=== PATIENT | male | born 1955 | race Caucasian/White ===

== ENCOUNTER 2016-07-04 18:11 | Emergency (ER) | payer OTHER ==
[2016-07-04] MEDS ORDERED: methylPREDNISolone Sodium Succinate 125 MG/2 ML SDV IVPUSH ONE (18:17)
[2016-07-04] MEDS ORDERED: Sodium Chloride 0.9% 1,000 ML IV ONE (18:17)
[2016-07-04] MEDS ORDERED: Famotidine 20 MG/2 ML SDV IVPUSH ONE (18:17)
[2016-07-04] MEDS ORDERED: diphenhydrAMINE 50 MG/ML SDV IVPUSH ONE (18:17)
[2016-07-04] MEDS ORDERED: Sodium Chloride 0.9% 10 ML Syringe FLUSH PRN (18:17)
[2016-07-04] MEDS ORDERED: Sodium Chloride 0.9% 2.5 ML Syringe FLUSH PRN (18:17)
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
[2016-07-04] MEDS ORDERED: Albuterol/Ipratropium 3.0-0.5 MG/3 ML Neb Soln NEB ONE (18:32)
[2016-07-04 19:56] VITALS: BP 149/88
== END 2016-07-04 20:05 | disposition home or self-care (01) ==
LOC: MW.ED 18:11
DX: T63.441A Toxic effect of venom of bees, accidental (unintentional), initial encounter (principal); F17.200 Nicotine dependence, unspecified, uncomplicated
CPT/HCPCS: 93005; 94664; 96361; 96374; 96375; 99283; J1200; J2930; J7040; 99284

== ENCOUNTER 2016-07-05 16:26 | Emergency (ER) | payer OTHER ==
[2016-07-05] MEDS ORDERED: methylPREDNISolone Sodium Succinate 40 MG/1 ML SDV IM ONE (16:41)
[2016-07-05] MEDS ORDERED: hydrOXYzine Pamoate 25 MG Cap PO ONE (16:41)
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
[2016-07-05 16:59] VITALS: BP 138/70
== END 2016-07-05 16:58 | disposition home or self-care (01) ==
LOC: MW.ED 16:26
DX: T63.441D Toxic effect of venom of bees, accidental (unintentional), subsequent encounter (principal); H93.8X2 Other specified disorders of left ear; I10 Essential (primary) hypertension; F17.210 Nicotine dependence, cigarettes, uncomplicated; Z91.030 Bee allergy status
CPT/HCPCS: 96372; 99282; A9270; J2920; 99283

== ENCOUNTER → 2016-07-18 | Outpatient (CLI) | payer OTHER ==
--- NOTE | 2016-07-18 13:37 | US ---
EXAMINATION: Limited abdominal ultrasound HISTORY: Hernia COMPARISON: None TECHNIQUE: Grayscale and color Doppler images obtained within the region of concern. FINDINGS: There is a small fat-containing supraumbilical hernia noted measuring approximately 2 x 4 cm. The defect within the abdominal wall measures approximately 1.7 cm. No abnormal color Doppler f low. IMPRESSION: Small supraumbilical fat-containing ventral hernia.
== END ==
LOC: MW.US 09:54
DX: K46.9 Unspecified abdominal hernia without obstruction or gangrene (principal)
CPT/HCPCS: 76705; 76705-26

== ENCOUNTER 2017-04-05 23:05 | Observation (INO) | payer OTHER ==
[2017-04-05] MEDS ORDERED: Sodium Chloride 0.9% 1,000 ML IV ONE (23:17)
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
[2017-04-05 23:54] LABS: CHLORIDE,CL 105 mmol/L (98-110); SODIUM,NA 139 mmol/L (136-146)
[2017-04-06] MEDS ORDERED: Sodium Chloride 0.9% 1,000 ML IV SCH ×2 (01:00→03:00)
[2017-04-06] MEDS ORDERED: LORazepam 2 MG/ML SDV IVPUSH PRN (02:46)
[2017-04-06] MEDS: Folic Acid 1 MG Tab PO SCH ×2 (03:18→09:05)
[2017-04-06] MEDS: Thiamine 100 MG Tab PO SCH ×2 (03:18→09:05)
[2017-04-06 05:39] LABS: CHLORIDE,CL 112 mmol/L (98-110); SODIUM,NA 142 mmol/L (136-146)
[2017-04-06 11:47] VITALS: BP 127/69
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
--- NOTE | 2017-04-07 15:35 | CT ---
EXAM DATE: 04/06/17 PATIENT'S AGE: 61 Patient: MARTINE MACARIO Facility: [place], [place] Site . Site : 1955 Study: CT Head [id number]/3/2018 11:49:25 PM Ordering Physician: Jay Pedro Final Report: INDICATION: Headache TECHNIQUE: Noncontrast CT of the brain was performed with images acquired from skull base to vertex. COMPARISON: None available. FINDINGS: Anterior inferior left frontal lobe encephalomalacia likely related to prior trauma. There is no acute intracranial hemorrhage. Ventricles are of normal size and morphology. No mass effect or midline shift is present. The taveras-white matter differentiation is normal. The visualized portions of the orbits are normal. The visualized portions of the mastoids are normal. The visualized portions of the paranasal sinuses are normal. There are bilateral nasal bone fractures and fracture of the left lamina papyracea. There postoperative changes left maxillary surgical repair. The visualized right maxillary sinus is completely opacified. IMPRESSION: 1. No acute intracranial abnormality. 2. Fractures of both nasal bones and the left lamina papyracea. Facial bones are incompletely evaluated. If there is a history of facial trauma, facial bone CT is recommended for further evaluation. Please note that all CT scans at this facility use dose modulation, iterative reconstruction, and/or weight-based dosing when appropriate to reduce radiation dose to as low as reasonably achievable. Dictated by Jared Santana MD @ Apr 05 2017 11:59PM ----- ADDENDUM ----- Addendum: Dr. Santana discussed these findings with Dr. Thompson at 12:15 a.m. on 04/06/2017 Dictated by Jared Santana MD @ Apr 06 2017 12:15AM (Electronic Signature) Report Signed by Proxy. [facility] HOSPITALCynthia
--- NOTE | 2017-04-07 15:35 | CR ---
EXAM DATE: 04/06/17 PATIENT'S AGE: 61 Patient: MARTINE MACARIO Facility: [place], [place] Site . Site : 1955 Study: XRay Chest [id number]/3/[id number] 11:51:43 PM Ordering Physician: Jay Pedro Final Report: INDICATION: Pain, ETOH CHEST, PA AND LATERAL Upright PA and lateral radiographs of the chest were performed. Comparison: 11/25/2012. The lungs appear clear and there are no pleural effusions. Heart size and pulmonary vasculature appear normal. Visualized bones show no significant findings. IMPRESSION: No acute intrathoracic abnormality identified. ABBEY WEEKS MD [employer] Dictated by: Ayan Weeks MD @ 04/06/2017 00:31:26 (Electronic Signature) Report Signed by Proxy. [facility]
== END 2017-04-06 15:50 | disposition home or self-care (01) ==
LOC: MW.ED 23:05 → MW.MS 04-06 00:57
PROVIDERS: ADMIT Internal Medicine; ATTEND Internal Medicine
DX: F10.129 Alcohol abuse with intoxication, unspecified (principal); I10 Essential (primary) hypertension; F17.210 Nicotine dependence, cigarettes, uncomplicated; Z91.09 Other allergy status, other than to drugs and biological substances
CPT/HCPCS: 36415; 70450; 71045; 80048; 80053; 80305; 81001; 82550; 82553; 84484; 85025; 93005; 96360; 96361; 99285; A9270; G0480; J7040; 99283; G0378

== ENCOUNTER 2017-05-25 00:49 | Emergency (ER) | payer OTHER ==
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
[2017-05-25] MEDS ORDERED: MVI, Adult with Vitamin K 10 ML, Thiamine 100 MG, Folic Acid 1 MG in Sodium Chloride 0.... IV ONE ×4 (01:20)
[2017-05-25 01:44] LABS: CHLORIDE,CL 108 mmol/L (98-107); SODIUM,NA 142 mmol/L (136-148)
[2017-05-25] MEDS ORDERED: Ketorolac 30 MG/ML SDV IVPUSH ONE (02:06)
[2017-05-25 03:28] VITALS: BP 157/78
--- NOTE | 2017-05-26 15:33 | CR ---
EXAM DATE: 05/25/17 PATIENT'S AGE: 61 Patient: MARTINE MACARIO Facility: [place], [place] Site . Site : [id number] Study: XRay Pelvis [id number]/25/2018 1:39:44 AM Ordering Physician: Jay Pedro Final Report: INDICATION: Left-sided pelvic pain, no history trauma TECHNIQUE: AP pelvis COMPARISON: None FINDINGS: Bones: Alignment is normal. No fractures or bone lesions. Joint spaces: Small bilateral acetabular spurs left greater right. Soft tissues: Unremarkable. IMPRESSION: Bilateral acetabular spurs left greater than right otherwise unremarkable pelvis. Dictated by Golden Culp MD @ 05/25/2017 2:00:47 AM Dictated by: Golden Culp MD @ 05/25/2017 02:00:52 (Electronic Signature) Report Signed by Proxy. [facility]LEY HOSPITALCynthia
== END 2017-05-25 03:29 | disposition home or self-care (01) ==
LOC: MW.ED 00:49
DX: M76.892 Other specified enthesopathies of left lower limb, excluding foot (principal); I10 Essential (primary) hypertension; F17.210 Nicotine dependence, cigarettes, uncomplicated; Z91.030 Bee allergy status
CPT/HCPCS: 72170; 80053; 81001; 83735; 85025; 96365; 96375; 99284; J1885; J3411; J7040; 99283

== ENCOUNTER → 2017-08-07 | Day surgery (SDC) | payer OTHER ==
[~2017-08-07] MED LIST: Betamethasone Acetate/Betamethasone Sod Phosphate 30 MG/5 ML MDV ONE; Iopamidol 408 MG/ML 50 ML SDV ONE; Lidocaine 2% 5 ML SDV ONE; Ropivacaine 0.5% 5 MG/ML 30 ML SDV ONE
--- NOTE | 2017-08-07 17:10 | OR ---
SURGEON: Melina Alejo D.O. DATE OF PROCEDURE: 08/07/2017 OR STAFF PRESENT: 1. Kyle Villalta RN. 2. Kareem Smith RN. WOUND CLASSIFICATION: I. PREOPERATIVE DIAGNOSES: 1. Left hip pain. 2. Left hip arthritis. POSTOPERATIVE DIAGNOSES: 1. Left hip pain. 2. Left hip arthritis. PROCEDURES PERFORMED: 1. Left intra-articular hip injection. 2. Fluoroscopic guidance for needle placement. 3. Local with oral Valium for sedation. SCREENING QUESTIONS: The patient answered "No" to all the following questions: 1. Are you allergic to iodine, Betadine, or latex? 2. Do you have a bleeding disorder? 3. Do you have any joint replacements, heart valve replacements or a pacemaker? 4. Are you allergic to anti-inflammatories? 5. Are you on any blood thinners? 6. Do you have any current local or systemic infections? DESCRIPTION OF PROCEDURE: The patient had the procedure thoroughly explained including all possible risks, benefits and alternatives. Consent was signed in my clinic indicating understanding and willingness to proceed. The patient presented to [facility] and was escorted to the dressing room to disrobe and change into a hospital gown. Preoperative vital signs were taken and stable. The patient reported that Valium was taken prior to the procedure. The patient was brought to the procedure room and placed in the supine position on the procedure room table. The hip landmarks were identified for the intra- articular injection and the femoral pulse was palpated and marked. The skin was marked shelter between the femoral pulse and greater trochanter for a skin wheal. The skin was sterilely prepped with ChloraPrep and draped. All personnel in the operating room were dressed in appropriate attire including surgical scrubs, head and shoe covers. This was to ensure sterility while in the treatment room. During the time fluoroscopy was in use, all personnel in the operating room wore lead tobar with thyroid collars. Sterile technique was used during the procedure. The fluoroscope was placed for the intra-articular hip injection. There were no signs of infection at the site for needle insertion. The skin was anesthetized with 2% Lidocaine with a 27-gauge 1.5 inch needle. Then, using a 22-gauge 3.5 inch spinal needle, I advanced to the capsule of the hip joint, a pop was felt. Under direct fluoroscopic guidance verifying needle positioning, 0.2 cubic centimeters increments of Isovue-200 dye was injected and shown to outline the intra-articular space. No intravascular flow pattern was observed under live fluoroscopy. After negative aspiration, a mixture of 0.5% Ropivacaine, 2% Lidocaine, and 12 milligrams of Celestone was slowly injected in small increments after negative aspiration of heme. No paresthesias were noted. The needle was cleared prior to removal from the skin and no adverse reactions were noted. The patient was then brought to the recovery room awake and in good condition by my staff. After a brief stay in the recovery room, the patient was discharged to home. Both oral and written discharge and followup instructions were given to the patient. The patient will follow up in the clinic in two to three weeks postprocedure to evaluate the efficacy. The patient verbalized understanding including understanding those signs and symptoms that would require emergency care and knows how to contact the office if there are any problems or questions in the meantime. PREOPERATIVE PAIN: 8/10. POSTOPERATIVE PAIN: 0/10. PLAN: Follow up in the Pain Clinic in 3 weeks. TOI / LAYLA /[id number]
== END ==
LOC: MW.SDS 13:46
PROVIDERS: ATTEND Anesthesiology
DX: M16.12 Unilateral primary osteoarthritis, left hip (principal); K21.9 Gastro-esophageal reflux disease without esophagitis; G44.329 Chronic post-traumatic headache, not intractable; B19.20 Unspecified viral hepatitis C without hepatic coma; F17.210 Nicotine dependence, cigarettes, uncomplicated; M54.16 Radiculopathy, lumbar region
CPT/HCPCS: 20610; J0702; J2795; Q9966

== ENCOUNTER 2017-08-28 12:08 | Day surgery (SDC) | payer OTHER ==
[~2017-08-28 12:08] MED LIST changes: -Betamethasone Acetate/Betamethasone Sod Phosphate 30 MG/5 ML MDV ONE; +Diazepam 5 MG Tab PO ONE; -Iopamidol 408 MG/ML 50 ML SDV ONE; -Lidocaine 2% 5 ML SDV ONE; -Ropivacaine 0.5% 5 MG/ML 30 ML SDV ONE
[2017-08-28] MEDS ORDERED: Lidocaine 2% 5 ML SDV ONE ×2 (14:02→14:03)
[2017-08-28] MEDS ORDERED: Iopamidol 408 MG/ML 50 ML SDV ONE (14:03)
[2017-08-28] MEDS ORDERED: Betamethasone Acetate/Betamethasone Sod Phosphate 30 MG/5 ML MDV ONE (14:03)
[2017-08-28] MEDS ORDERED: Ropivacaine 0.5% 5 MG/ML 30 ML SDV ONE (14:03)
--- NOTE | 2017-08-28 15:08 | OR ---
SURGEON: Melina Alejo D.O. DATE OF PROCEDURE: 08/28/2017 OR STAFF PRESENT: 1. Kyle Villalta RN. 2. Asif Wilkinson RT. PREOPERATIVE DIAGNOSES: 1. Lumbar degenerative disk disease. 2. Lumbar spondylosis. 3. Lumbar spinal stenosis. 4. Lumbar radiculopathy. POSTOPERATIVE DIAGNOSES: 1. Lumbar degenerative disk disease. 2. Lumbar spondylosis. 3. Lumbar spinal stenosis. 4. Lumbar radiculopathy. PROCEDURES PERFORMED: 1. Caudal epidural steroid injection. 2. Fluoroscopic guidance for needle placement. 3. Local with oral valium for sedation. SCREENING QUESTIONS: The patient answered "no" to all of the following questions: 1. Are you allergic to latex? 2. Do you have a bleeding disorder? 3. Do you have any current local or systemic infections? 4. Are you taking any anti-inflammatories or blood thinners? 5. Do you have any joint replacements, heart valve replacements, or a pacemaker? DESCRIPTION OF PROCEDURE: The patient had the procedure thoroughly explained including all possible risks, benefits and alternatives. Consent was signed in my clinic indicating understanding and willingness to proceed. The patient presented to [facility] and was escorted to the dressing room to disrobe and change into a hospital gown. Preoperative vital signs were taken and stable. The patient reported that Valium was taken prior to the procedure. The patient was brought back to the procedure room and placed in the prone position on the procedure room table. A pillow was placed under the hips in order to flatten the lumbar lordosis. The back was prepped with ChloraPrep and sterilely draped. All personnel in the operating room were dressed in appropriate attire including surgical scrubs, head and shoe covers. This was to ensure sterility while in the treatment room. During the time fluoroscopy was in use, all personnel in the operating room wore lead tobar with thyroid collars. Sterile technique was used throughout the procedure. The patient was awake and conversant throughout the procedure. There was no evidence of infection at the site of needle insertion. Skeletal landmarks were identified under fluoroscopy for the lumbar epidural. Skin was anesthetized with 2% lidocaine with a sterile 27-gauge 1.5 inch needle. Then, a 20-gauge Tuohy epidural needle was placed in the epidural space with loss of resistance technique under fluoroscopic guidance. No heme, cerebrospinal fluid, or paresthesias were noted. Isovue-200 contrast dye was injected in 0.2 cubic centimeter increments and seen to outline the epidural space in both AP and lateral views. There was no intravascular flow pattern observed under live fluoroscopy. Then, 12 milligrams of Celestone was slowly injected after negative aspiration. The patient tolerated the procedure well. Vital signs were stable during and after the procedure. The staff escorted the patient to the recovery area and the patient was released in stable condition after a brief stay in the recovery room monitored by the nurse. The patient was given both oral and written discharge and follow up instructions with recommendation to follow up given for 2-3 weeks. The patient voiced understanding including understanding of those signs and symptoms that would require emergency care. The patient knows how to contact the office if there are any additional problems or questions in the meantime. PREOPERATIVE PAIN: 8/10 POSTOPERATIVE PAIN: 06/10 FOLLOWUP: Follow up in the Pain Clinic in 3 weeks TOI / LAYLA /[id number]
== END 2017-08-28 14:18 ==
LOC: MW.SDS 12:08
PROVIDERS: ATTEND Anesthesiology
DX: M51.16 Intervertebral disc disorders with radiculopathy, lumbar region (principal); M47.26 Other spondylosis with radiculopathy, lumbar region; M48.061 Spinal stenosis, lumbar region without neurogenic claudication; M19.90 Unspecified osteoarthritis, unspecified site; M16.12 Unilateral primary osteoarthritis, left hip; K21.9 Gastro-esophageal reflux disease without esophagitis; B19.20 Unspecified viral hepatitis C without hepatic coma; F17.210 Nicotine dependence, cigarettes, uncomplicated; Z79.899 Other long term (current) drug therapy
CPT/HCPCS: A9270-GY; J0702; J2795; Q9966

== ENCOUNTER 2017-08-31 10:06 | Emergency (ER) | payer OTHER ==
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
[2017-08-31] MEDS ORDERED: Sodium Chloride 0.9% 2.5 ML Syringe FLUSH PRN (10:30)
[2017-08-31] MEDS ORDERED: Sodium Chloride 0.9% 10 ML Syringe FLUSH PRN (10:30)
[2017-08-31] MEDS ORDERED: Morphine 2 MG/ML Syringe IVPUSH ONE (11:00)
[2017-08-31] MEDS ORDERED: Ondansetron 4 MG/2 ML SDV IVPUSH ONE (11:00)
[2017-08-31 11:08] LABS: CHLORIDE,CL 104 mmol/L (98-107); SODIUM,NA 140 mmol/L (136-148)
[2017-08-31] MEDS ORDERED: Iopamidol 755 MG/ML 200 ML Multipack Bottle IVPUSH ONE (11:46)
[2017-08-31 12:55] VITALS: BP 161/84
--- NOTE | 2017-09-01 18:35 | CT ---
EXAM DATE: 08/31/17 PATIENT'S AGE: 62 Patient: MARTINE MACARIO Facility: [place], [place] Site . Site : [id number] Study: CT Abdomen/Pelvis w cont [id number]/1/2018 11:50:08 AM Ordering Physician: Doctor Tellez Final Report: HISTORY: Right lower abdominal pain radiating to left side for 2 days. Technique: Contrast enhanced CT abdomen pelvis with 100 mL Isovue-370 coronal sagittal reformatted images obtained. COMPARISON: No comparison studies are available. FINDINGS: Heart size is normal. Mild bibasilar strandy atelectasis. There is no effusion. Mild fatty liver. Pancreas gallbladder adrenal glands, spleen appears unremarkable. Kidneys appear unremarkable. Tiny cyst in the kidneys. No hydronephrosis. Urinary bladder appears unremarkable. Normal appendix. Bowel is unremarkable. Mild enlargement of the prostate gland. No inflammatory change in the abdomen or pelvis. No suspicious bony lesions. IMPRESSION: 1. No acute findings in the abdomen or pelvis. 2. Mild enlargement of prostate gland. Mild fatty liver. Please note that all CT scans at this facility use dose modulation, iterative reconstruction, and/or weight-based dosing when appropriate to reduce radiation dose to as low as reasonably achievable. Dictated by Giovana Archuleta MD @ Aug 31 2017 12:14PM (Electronic Signature) Report Signed by Proxy. KRISTEN
== END 2017-08-31 12:40 | disposition home or self-care (01) ==
LOC: MW.ED 10:06
DX: R14.1 Gas pain (principal); I10 Essential (primary) hypertension; Z79.899 Other long term (current) drug therapy
CPT/HCPCS: 36415; 74177; 80053; 81001; 85025; 96374; 96375; 99284; J2270; J2405; Q9967; 99282

== ENCOUNTER 2017-09-16 11:55 | Day surgery (SDC) | payer OTHER ==
[~2017-09-16 11:55] MED LIST changes: +Betamethasone Acetate/Betamethasone Sod Phosphate 30 MG/5 ML MDV ONE; -Diazepam 5 MG Tab PO ONE; +Iopamidol 408 MG/ML 50 ML SDV ONE; +Lidocaine 2% 5 ML SDV ONE; +Ropivacaine 0.5% 5 MG/ML 30 ML SDV ONE
--- NOTE | 2017-09-16 16:43 | OR ---
SURGEON: Melina Alejo D.O. DATE OF PROCEDURE: 09/16/2017 OR STAFF PRESENT: 1. Venita Smith RN. 2. Venita Valdes RN. 3. Samra Hall, RT. WOUND CLASS: I. PREOPERATIVE DIAGNOSES: 1. Lumbar degenerative disk disease. 2. Lumbar spinal stenosis. 3. Lumbar radiculopathy. POSTOPERATIVE DIAGNOSES: 1. Lumbar degenerative disk disease at L3-4, L4-5, and L5-S1. 2. Lumbar radiculopathy. 3. Lumbar spinal stenosis. 4. Lumbar spondylosis. PROCEDURES PERFORMED: 1. Lumbar interlaminar epidural steroid injection at L3-4. 2. Fluoroscopic guidance for needle placement. 3. Local with oral valium for sedation. SCREENING QUESTIONS: The patient answered "no" to all of the following questions: 1. Are you allergic to latex? 2. Do you have a bleeding disorder? 3. Do you have any current local or systemic infections? 4. Are you taking any anti-inflammatories or blood thinners? 5. Do you have any joint replacements, heart valve replacements, or a pacemaker? DESCRIPTION OF PROCEDURE: The patient had the procedure thoroughly explained including all possible risks, benefits and alternatives. Consent was signed in my clinic indicating understanding and willingness to proceed. The patient presented to [facility] and was escorted to the dressing room to disrobe and change into a hospital gown. Preoperative vital signs were taken and stable. The patient reported that Valium was taken prior to the procedure. The patient was brought back to the procedure room and placed in the prone position on the procedure room table. A pillow was placed under the hips in order to flatten the lumbar lordosis. The back was prepped with ChloraPrep and sterilely draped. All personnel in the operating room were dressed in appropriate attire including surgical scrubs, head and shoe covers. This was to ensure sterility while in the treatment room. During the time fluoroscopy was in use, all personnel in the operating room wore lead tobar with thyroid collars. Sterile technique was used throughout the procedure. The patient was awake and conversant throughout the procedure. There was no evidence of infection at the site of needle insertion. Skeletal landmarks were identified under fluoroscopy for the lumbar epidural. Skin was anesthetized with 2% lidocaine with a sterile 27-gauge 1.5 inch needle. Then a 20-gauge Tuohy epidural needle was placed in the epidural space with loss of resistance technique under fluoroscopic guidance. No heme, cerebrospinal fluid, or paresthesias were noted. Isovue-200 contrast dye was injected in 0.2 cubic centimeter increments and seen to outline the epidural space in both AP and lateral views. There was no intravascular flow pattern observed under live fluoroscopy. Then 12 milligrams of Celestone was slowly injected after negative aspiration. The patient tolerated the procedure well. Vital signs were stable during and after the procedure. The staff escorted the patient to the recovery area and the patient was released in stable condition after a brief stay in the recovery room monitored by the nurse. The patient was given both oral and written discharge and follow up instructions with recommendation to follow up given for 2-3 weeks. The patient voiced understanding including understanding of those signs and symptoms that would require emergency care. The patient knows how to contact the office if there are any additional problems or questions in the meantime. PREOPERATIVE PAIN: 8/10. POSTOPERATIVE PAIN: 4/10. FOLLOWUP: In the pain clinic in 3 weeks. TOI / LAYLA /[id number]
== END 2017-09-16 14:14 | disposition home or self-care (01) ==
LOC: MW.SDS 11:55
PROVIDERS: ATTEND Anesthesiology
DX: M51.16 Intervertebral disc disorders with radiculopathy, lumbar region (principal); M48.061 Spinal stenosis, lumbar region without neurogenic claudication; M47.896 Other spondylosis, lumbar region; G89.4 Chronic pain syndrome; M79.1 Myalgia; K21.9 Gastro-esophageal reflux disease without esophagitis
CPT/HCPCS: 62323; J0702; J2795; Q9966

== ENCOUNTER 2017-09-21 20:05 | Emergency (ER) | payer OTHER ==
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
[2017-09-21] MEDS ORDERED: Albuterol/Ipratropium 3.0-0.5 MG/3 ML Neb Soln NEB ONE (20:37)
[2017-09-21] MEDS ORDERED: cefTRIAXone 250 MG Vial IM ONE (20:37)
[2017-09-21 20:42] VITALS: BP 146/72
[2017-09-21 21:13] LABS: CHLORIDE,CL 104 mmol/L (98-107); SODIUM,NA 138 mmol/L (136-148)
--- NOTE | 2017-09-22 14:47 | CR ---
EXAM DATE: 09/21/17 PATIENT'S AGE: 62 Patient: MARTINE MACARIO Facility: [place], [place] Site . Site : 1955 Study: XRay Chest [id number]/22/2018 9:13:22 PM Ordering Physician: Jacobo Craven Final Report: INDICATIONS: Productive cough with fever. TECHNIQUE: Chest 2 view. COMPARISON: None FINDINGS: No pneumothorax, pleural effusion or airspace consolidation. Cardiac and mediastinal contours are within normal limits. Upper abdomen and osseous structures show no acute abnormality. IMPRESSION: No evidence of acute cardiopulmonary disease. Dictated by Theo Monroe MD @ 09/21/2017 9:43:30 PM Dictated by: Theo Monroe MD @ 09/21/2017 21:43:44 (Electronic Signature) Report Signed by Proxy. [facility]AMPUSCynthia
== END 2017-09-21 22:25 | disposition home or self-care (01) ==
LOC: MW.ED 20:05
DX: J18.9 Pneumonia, unspecified organism (principal); Z91.030 Bee allergy status
CPT/HCPCS: 36415; 71046; 80048; 85025; 94640; 96372; 99283; J0696

== ENCOUNTER 2017-12-02 08:16 | Emergency (ER) | payer OTHER ==
[2017-12-02 08:34] VITALS: BP 173/91
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
--- NOTE | 2017-12-02 09:56 | CT ---
EXAMINATION: Non contrast CT head and facial bones. Coronal and sagittal reformats. HISTORY: Pain FINDINGS: Head: No evidence of intra or extra axial hemorrhage, mass, midline shift, hydrocephalus or edema. S mall area of encephalomalacia within the left frontal region. No hypoattenuation changes in the melissa r vascular territories to suggest acute infarct. No abnormal intracranial calcifications are detected. No evidence of substantial vascular calcificat ions. The opacification of the right maxillary sinus and a single right ethmoid air cell. Mastoid ai r cells are clear. Pituitary fossa appears unremarkable. Calvarium is intact. No evidence of skull fracture. Facial bones: Old healed maxillary wall fractures noted without definite evidence of an acute injury. Zygomatic arches are intact. Pterygoid plates are intact. Moderate rightward deviation of the nasal septum. Multiple nasal bone fractures are noted, likely chronic. No acute-appearing orbital wall frac ture. Pterygoid plate fractures are noted bilaterally thinning into the maxillary regions, however im ages appear corticated and likely chronic. The mandible is intact. Visualized cervical spine is intac t. Orbits and globes appear symmetric. IMPRESSION: 1. No acute intracranial findings. 2. Old [place] and nasal bone fractures. 3. No definite evidence of an acute facial bone injury. 4. Heterogeneous, complete opacification of the right maxillary sinus. This likely represents chronic sinusitis with a fungal etiology versus inspissated secretions. 5. 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 6. Mild small vessel ischemic changes.
--- NOTE | 2017-12-02 10:00 | CT ---
EXAMINATION: CT cervical spine HISTORY: Pain COMPARISON: None TECHNIQUE: Axial CT images obtained through the cervical spine without contrast. Coronal and sagittal reconstructions obtained. FINDINGS: There is reversal of the normal cervical lordosis. The vertebral body heights appear mainta ined. There is no fracture or acute osseous abnormality. Mild to moderate marginal osteophytes noted. Likely small osteophyte disc complexes noted throughout the cervical spine. Please see CT head for i ntracranial findings. Mild carotid artery calcifications. Hazy groundglass opacities noted within the lung apices. IMPRESSION: 1. No acute cervical spinal injury. 2. Moderate degenerative changes noted throughout the cervical spine. 3. Hazy groundglass opacities within the lung apices, right greater than left. Etiology is uncertain however short-term follow-up with a dedicated lung CT may be beneficial.
== END 2017-12-02 10:13 | disposition home or self-care (01) ==
LOC: MW.ED 08:16
DX: S09.90XA Unspecified injury of head, initial encounter (principal); S00.83XA Contusion of other part of head, initial encounter; I10 Essential (primary) hypertension; Z91.030 Bee allergy status; Y04.0XXA Assault by unarmed brawl or fight, initial encounter
CPT/HCPCS: 70450; 70450-26; 70486; 70486-26; 72125; 72125-26; 99284; 99284-25

== ENCOUNTER 2018-08-03 10:48 | Emergency (ER) | payer OTHER ==
[2018-08-03] MEDS ORDERED: Sodium Chloride 0.9% 10 ML Syringe FLUSH PRN (10:54)
[2018-08-03] MEDS ORDERED: Sodium Chloride 0.9% 2.5 ML Syringe FLUSH PRN (10:54)
[2018-08-03] MEDS ORDERED: Sodium Chloride 0.9% 10 ML SDV IV PRN (10:54)
[2018-08-03] MEDS ORDERED: Aspirin 81 MG Tab.Chew PO ONE (10:59)
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
[2018-08-03 11:35] VITALS: BP 189/91
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
[2018-08-03 12:07] LABS: CHLORIDE,CL 109 mmol/L (98-107); SODIUM,NA 143 mmol/L (136-148)
--- NOTE | 2018-08-03 12:08 | CR ---
INDICATION: Stroke code. COMPARISON: March, Single AP view Findings: The lungs are clear. Pulmonary vascularity, mediastinum and cardiac silhouette are within normal limits. No effusions and no pneumothorax. Osseous structures appear unremarkable. Impression: No evidence of acute cardiopulmonary disease. Dictated by: Pawel Beckman MD @ 08/03/2018 12:07:31 (Electronically Signed)
== END 2018-08-03 12:45 | disposition left against medical advice (07) ==
LOC: MW.ED 10:48
DX: R20.2 Paresthesia of skin (principal); I10 Essential (primary) hypertension; Z53.21 Procedure and treatment not carried out due to patient leaving prior to being seen by health care provider; Z91.030 Bee allergy status; Z79.899 Other long term (current) drug therapy
CPT/HCPCS: 36415; 70450; 71045; 80053; 84443; 84484; 85025; 85610; 85730; 93005; 99285; A9270

== ENCOUNTER 2018-09-02 04:57 | Emergency (ER) | payer OTHER ==
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
[2018-09-02 05:36] VITALS: BP 149/77
== END 2018-09-02 05:35 | disposition home or self-care (01) ==
LOC: MW.ED 04:57
DX: Z02.83 Encounter for blood-alcohol and blood-drug test (principal); Y90.6 Blood alcohol level of 120-199 mg/100 ml
CPT/HCPCS: 36415; 99282; G0480

== ENCOUNTER 2020-12-06 17:56 | Emergency (ER) | payer OTHER ==
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
--- NOTE | 2020-12-06 18:23 | PCM.EKG ---
#1 Interpretation EKG Interpretation Comments: Heart rate = 70 bpm, normal sinus rhythm, normal QRS interval, no STEMI. EKG and rhythm strip interpreted by me at [id number]
[2020-12-06 18:50] LABS: BLOOD UREA NITROGEN,BUN 22 mg/dL (7.0-18.0); CARBON DIOXIDE,CO2 24.1 mmol/L (21.0-32.0); CHLORIDE,CL 105 mmol/L (98-107); GLUCOSE RANDOM 79 mg/dL (74-106); POTASSIUM,K 3.9 mmol/L (3.5-5.1); SODIUM,NA 143 mmol/L (136-148)
--- NOTE | 2020-12-06 19:00 | CR ---
INDICATION: Chest pain TECHNIQUE: Chest radiograph 1 view COMPARISON: 03/18/2019 FINDINGS: Mediastinum: The mediastinum is normal in appearance. The heart silhouette is normal in size and morphology. Lung: Both lungs are unremarkable in appearance with small lung volumes. No sign of pleural effusion seen. No pneumothorax is identified. Bone and Soft tissue: Unremarkable for age. IMPRESSION: 1. No acute cardiopulmonary disease is seen. Dictated by: Greg Mustafa MD @ 12/06/2020 18:58:55 (Electronically Signed)
[2020-12-06] MEDS ORDERED: Ketorolac 30 MG/ML SDV IVPUSH ONE (19:09)
[2020-12-06] MEDS ORDERED: Sodium Chloride 0.9% 1,000 ML IV ONE (19:10)
[2020-12-06] MEDS ORDERED: Iopamidol 755 MG/ML 500 ML Multipack Bottle IVPUSH STA (20:04)
--- NOTE | 2020-12-06 20:30 | CT ---
INDICATION: Chest pain TECHNIQUE: CT chest with i.v. contrast using pulmonary angiographic technique. Coronal and sagittal reformats were obtained. CONTRAST: 100 mL Isovue 370 COMPARISON: 01/11/2020 FINDINGS: Cardiovascular: The pulmonary arteries are unremarkable in enhancement with no evidence of acute pulmonary embolism. The heart has an unremarkable appearance and size. No sign of aneurysm in the thoracic aorta. Mediastinum: No mass or adenopathy seen. Lung: Both lungs are unremarkable in appearance. Pleura and pericardium: No sign of pleural effusion seen. No significant pericardial effusion is present. Chest wall and axilla: No mass or adenopathy seen. Bone: Unremarkable for age. Upper abdomen: Unremarkable. IMPRESSION: 1. No CT evidence of acute pulmonary emboli seen. Dictated by Greg Mustafa MD @ 12/06/2020 8:29:07 PM Please note that all CT scans at this facility use dose modulation, iterative reconstruction, and/or weight-based dosing when appropriate to reduce radiation dose to as low as reasonably achievable. Dictated by: Greg Mustafa MD @ 12/06/2020 20:29:11 (Electronically Signed)
[2020-12-06 20:33] VITALS: PULSE 65
[2020-12-06 20:39] VITALS: BP 156/76
== END 2020-12-06 20:43 | disposition home or self-care (01) ==
LOC: MW.ED 17:56
DX: R07.9 Chest pain, unspecified (principal); I10 Essential (primary) hypertension; Z91.030 Bee allergy status; Z20.822 Contact with and (suspected) exposure to COVID-19
CPT/HCPCS: 36415; 71045; 71275; 80053; 84484; 85025; 87635; 93005; 96374; 99285; J1885; J7030; Q9967; U0002

== ENCOUNTER 2021-06-22 21:13 | Emergency (ER) | payer OTHER ==
[2021-06-22 23:15] VITALS: BP 145/77; PULSE 54
[2021-06-22] MEDS ORDERED: Diphtheria,Pertussis(Acell),Tetanus Vaccine 0.5 ML Syringe IM ONE (23:19)
[2021-06-22] MEDS ORDERED: Lidocaine 1% 5 ML VIAL INJECT ONE (23:35)
== END 2021-06-23 00:51 | disposition home or self-care (01) ==
LOC: MW.ED 21:13
DX: S61.211A Laceration without foreign body of left index finger without damage to nail, initial encounter (principal); I10 Essential (primary) hypertension; Z23 Encounter for immunization; Z91.030 Bee allergy status; Z79.899 Other long term (current) drug therapy; W26.0XXA Contact with knife, initial encounter
CPT/HCPCS: 12001; 90471; 90715; 99282-25

== ENCOUNTER 2022-05-23 21:04 | Emergency (ER) | payer OTHER ==
[2022-05-23] MEDS ORDERED: Ondansetron 4 MG/2 ML SDV IVPUSH ONE (21:37)
[2022-05-23] MEDS ORDERED: Iopamidol 755 MG/ML 500 ML Multipack Bottle IVPUSH STA (21:38)
[2022-05-23] MEDS ORDERED: INFUSION IV STA (21:47)
[2022-05-23] MEDS ORDERED: ALTEPLASE IV STA (21:47)
[2022-05-23 21:50] LABS: CARBON DIOXIDE,CO2 22.4 mmol/L (21.0-32.0); POTASSIUM,K 3.9 mmol/L (3.5-5.1)
[2022-05-23] MEDS ORDERED: Benzonatate 100 MG Cap PO ONE (22:46)
[2022-05-23 23:40] VITALS: BP 133/65; PULSE 59
== END 2022-05-24 00:26 ==
LOC: MW.ED 21:04
DX: I63.9 Cerebral infarction, unspecified (principal); I10 Essential (primary) hypertension; Z91.030 Bee allergy status; Z20.822 Contact with and (suspected) exposure to COVID-19
CPT/HCPCS: 36415; 37195; 51702; 70450; 70496; 70498; 80053; 80307; 82947; 84484; 85025; 85610; 85730; 87635; 93005; 96374; 99285; A9270; J2405; J2997; Q9967; 93010; U0002

== ENCOUNTER 2023-02-23 05:23 | Emergency (ER) | payer OTHER ==
[2023-02-23] MEDS ORDERED: Sodium Chloride 0.9% 2.5 ML Syringe FLUSH PRN (05:27)
[2023-02-23] MEDS ORDERED: Sodium Chloride 0.9% 10 ML Syringe FLUSH PRN (05:27)
[2023-02-23] MEDS ORDERED: Morphine 4 MG/ML Syringe IM ONE (05:43)
[2023-02-23 05:45] LABS: BASOPHILS ABSOLUTE AUTO 0.02 K/uL (0.00-0.20); BASOPHILS PERCENT AUTO 0.2 % (0.0-1.0); EOSINOPHILS ABSOLUTE AUTO 0.31 K/uL (0.00-0.45); EOSINOPHILS PERCENT AUTO 2.8 % (0.0-6.0); HEMATOCRIT 41.8 % (42.0-52.0); HEMOGLOBIN 14.7 g/dL (14.0-18.0); IMMATURE GRAN ABSOLUTE AUTO 0.05 K/uL (0.00-0.05); IMMATURE GRAN PERCENT AUTO 0.5 % (0.0-0.4); LYMPHOCYTES ABSOLUTE AUTO 1.25 K/uL (1.00-4.80); LYMPHOCYTES PERCENT AUTO 11.4 % (24.0-44.0); MEAN CORPUSCULAR HEMOGLOBIN 32.8 pg (28.0-32.0); MEAN CORPUSCULAR HGB CONC 35.2 g/dL (32.0-36.0); MEAN CORPUSCULAR VOLUME 93.3 fL (83.0-99.0); MEAN PLATELET VOLUME 9.5 fL (9.4-12.4); MONOCYTES ABSOLUTE AUTO 1.05 K/uL (0.00-0.80); MONOCYTES PERCENT AUTO 9.6 % (0.0-8.0); NEUTROPHILS ABSOLUTE AUTO 8.26 K/uL (1.80-7.70); NEUTROPHILS PERCENT AUTO 75.5 % (41.0-71.0); PLATELET COUNT,PLT 229 K/uL (150-400); RED BLOOD CELL COUNT 4.48 M/uL (4.52-5.90); WHITE BLOOD CELL COUNT,WBC 10.94 K/uL (3.9-11.3)
[2023-02-23] MEDS ORDERED: Morphine 4 MG/ML Syringe IVPUSH ONE ×2 (05:45→07:54)
[2023-02-23] MEDS ORDERED: Iopamidol 755 MG/ML 500 ML Multipack Bottle IVPUSH ONE (06:02)
[2023-02-23 06:12] LABS: A/G RATIO 0.8 (0.9-1.6); ALBUMIN 3.1 g/dL (3.4-5.0); BILIRUBIN TOTAL 0.6 mg/dL (0.2-1.0); CALCIUM 8.9 mg/dL (8.5-10.1); CARBON DIOXIDE,CO2 26.6 mmol/L (21.0-32.0); CREATININE 0.9 mg/dL (0.8-1.3); EST CRCL DRUG DOSING (CG) 87.42 mL/min; POTASSIUM,K 4.2 mmol/L (3.5-5.1); PROTEIN TOTAL,TP 7.1 g/dL (6.4-8.2)
[2023-02-23 06:23] LABS: CORONAVIRUS COVID-19 NAA NEGATIVE (NEGATIVE); INFLUENZA A NAA NEGATIVE (NEGATIVE); INFLUENZA B NAA NEGATIVE (NEGATIVE); RESPIRATORY SYNCYTIAL VIR NAA NEGATIVE (NEGATIVE)
[2023-02-23 06:57] LABS: APPEARANCE,URINE SLT CLOUDY; BILIRUBIN,URINE NEGATIVE (NEGATIVE); COLOR,URINE YELLOW; GLUCOSE,URINE NEGATIVE (NEGATIVE); KETONES,URINE NEGATIVE (NEGATIVE); LEUKOCYTE ESTERASE,URINE TRACE (NEGATIVE); NITRITE,URINE POSITIVE (NEGATIVE); OCCULT BLOOD,URINE MODERATE (NEGATIVE); PROTEIN,URINE NEGATIVE (NEGATIVE); UROBILINOGEN,URINE 0.2 EU/dL (<2.0)
[2023-02-23 07:03] LABS: BACTERIA,URINE 1+ (NEGATIVE); EPITHELIAL CELLS,URINE NOT SEEN (NONE-FEW); RBC,URINE 15-20 (0-2/HPF)
[2023-02-23 07:04] LABS: MUCUS,URINE MODERATE (NONE-MOD)
[2023-02-23 08:12] VITALS: BP 129/79; PULSE 67
== END 2023-02-23 08:34 | disposition home or self-care (01) ==
LOC: MW.ED 05:23
DX: K56.7 Ileus, unspecified (principal); I10 Essential (primary) hypertension; J44.9 Chronic obstructive pulmonary disease, unspecified; Z20.822 Contact with and (suspected) exposure to COVID-19; Z79.82 Long term (current) use of aspirin; Z79.899 Other long term (current) drug therapy; Z91.030 Bee allergy status
CPT/HCPCS: 0241U; 36415; 74177; 80053; 81001; 85025; 96374; 96376; 99284; J2270; J3490; Q9967

== ENCOUNTER 2023-02-25 07:58 | Emergency (ER) | payer OTHER ==
[2023-02-25 08:10] VITALS: BP 127/83; PULSE 92
== END 2023-02-25 09:27 | disposition home or self-care (01) ==
LOC: MW.ED 07:58
DX: T83.091A Other mechanical complication of indwelling urethral catheter, initial encounter (principal); I10 Essential (primary) hypertension; Z79.82 Long term (current) use of aspirin; Z79.899 Other long term (current) drug therapy; Z91.030 Bee allergy status
CPT/HCPCS: 99283

== ENCOUNTER 2023-03-02 11:12 | Emergency (ER) | payer OTHER ==
[2023-03-02 12:13] VITALS: BP 137/85; PULSE 85
== END 2023-03-02 12:56 | disposition home or self-care (01) ==
LOC: MW.ED 11:12
DX: G89.18 Other acute postprocedural pain (principal); I10 Essential (primary) hypertension; E78.00 Pure hypercholesterolemia, unspecified; J44.9 Chronic obstructive pulmonary disease, unspecified; Z79.82 Long term (current) use of aspirin; Z91.030 Bee allergy status; Z79.899 Other long term (current) drug therapy
CPT/HCPCS: 99283

== ENCOUNTER 2024-04-03 10:33 | Emergency (ER) | payer OTHER ==
[2024-04-03 11:09] VITALS: BP 127/89; PULSE 70
[2024-04-03] MEDS: Aspirin 325 MG Tab PO ONE (12:37)
== END 2024-04-03 12:37 | disposition home or self-care (01) ==
LOC: MW.ED 10:33
DX: I80.01 Phlebitis and thrombophlebitis of superficial vessels of right lower extremity (principal); I10 Essential (primary) hypertension; E78.00 Pure hypercholesterolemia, unspecified; J44.9 Chronic obstructive pulmonary disease, unspecified; Z75.8 Other problems related to medical facilities and other health care; Z91.030 Bee allergy status; Z79.82 Long term (current) use of aspirin; Z79.899 Other long term (current) drug therapy
CPT/HCPCS: 93971-26-RT; 93971-RT; 99283